=== PATIENT | male | born 1945 | race Caucasian/White ===

== ENCOUNTER 2018-05-28 16:21 | Emergency (ER) | payer MEDICARE ==
[~2018-05-28] VITALS: Ht 182.8 cm; Wt 68.0 kg
--- NOTE | ~2018-05-28 | EKG ---
[place], [place] ELECTROCARDIOGRAM REPORT NAME: ANA VU UNIT #: [id number] ROOM: DOCTOR: CAROL DRAFT REPORT BIRTHDATE: [birth year] [facility] Test Date: 2018-05-28 Test Time: 16:50:35 Pat Name: ANA VU Department: Room: Gender: Medical Records Specialist: SOFY : 1945 Requested By: KOSTA OCHOA Order Number: [id number] Reading MD: Measurements Intervals [place] Rate: 67 P: 57 NE: 169 QRS: 60 QRSD: 85 T: 60 QT: 414 QTc: 437 Interpretive Statements Sinus rhythm No previous ECG available for comparison CM:EKGRPT:ELECTROCARDIOGRAM REPORT [id number] KOSTA LOPEZ DRAFT REPORT KOSTA OCHOA DO
[2018-05-28 16:55] LABS: BILIRUBIN NEGATIVE (NEGATIVE); BLOOD NEGATIVE (NEGATIVE); CLARITY CLEAR (CLEAR); COLOR YELLOW (YELLOW); GLUCOSE NEGATIVE (NEGATIVE); KETONE NEGATIVE (NEGATIVE); LEUKO ESTERASE NEGATIVE (NEGATIVE); NITRITE NEGATIVE (NEGATIVE); SPECIFIC GRAVITY >= 1.030 (1.005-1.030); UROBILINOGEN 0.2 E.U./dl (0.2-1.0)
[2018-05-28 17:02] LABS: BASO % 0.3 % (0.0-1.0); EOS # 0.2 10*3/uL (0.0-0.4); EOS % 1.7 % (1.0-4.0); HEMATOCRIT 35.3 % (42.0-52.0); HEMOGLOBIN 12.4 g/dl (14.0-18.0); LYMPH # 1.1 10*3/uL (1.3-4.4); LYMPH % 11.4 % (27.0-41.0); MEAN CELL VOLUME 92.7 fl (80.0-94.0); MEAN CORPUSCULAR HGB 32.5 pg (27.0-31.0); MEAN CORPUSCULAR HGB CONC 35.1 g/dl (33.0-37.0); MEAN PLATELET VOLUME 9.5 fl (9.6-12.3); MONO # 0.8 10*3/uL (0.1-1.0); MONO % 8.7 % (3.0-9.0); NEUT # 7.2 10*3/uL (2.3-7.9); NEUT % 77.7 % (47.0-73.0); PLATELET COUNT AUTOMATED 193 10*3/uL (130-400); RED BLOOD COUNT 3.81 10*6/uL (4.50-5.90); RED CELL DISTRI WIDTH 15.1 % (0-14.5); WHITE BLOOD COUNT 9.2 10*3/uL (4.8-10.8)
[2018-05-28 17:03] LABS: URINE AMPHETAMINES < 1000 (1000ng/ml); URINE BARBITURATES < 200 (200ng/ml); URINE BENZODIAZEPINES < 200 (200ng/ml); URINE CANNABINOIDS (THC) > 50 (50ng/ml); URINE COCAINE < 300 (300ng/ml); URINE METHADONE < 300 (300ng/ml); URINE OPIATES < 300 (300ng/ml); URINE PHENCYCLIDINE < 25 (25ng/ml)
[2018-05-28 17:06] LABS: BACTERIA 1+; EPITHELIAL CELLS 0-2; RBC 0-2 rbc/hpf (0-2)
[2018-05-28 17:07] LABS: MUCOUS TRACE
[2018-05-28 17:11] LABS: ACT PARTIAL THROMBO TIME 24.8 SECONDS (20.8-31.5)
[2018-05-28 17:19] LABS: ALBUMIN 3.4 gm/dl (3.1-4.5); ALKALINE PHOSPHATASE 106 U/L (45-117); BUN 25 mg/dl (7-24); CHLORIDE 108 mmol/L (98-107); CREATININE 1.24 mg/dL (0.70-1.30); LIPASE 140 U/L (73-393); POTASSIUM 4.4 mmol/L (3.5-5.1); SGOT/AST 21 IU/L (3-35); SGPT/ALT 24 U/L (12-78); SODIUM 141 mmol/L (136-145); TOTAL PROTEIN 7.3 gm/dL (6.4-8.2)
[2018-05-28 17:20] LABS: TROPONIN I < 0.015 ng/ml (<0.045)
[2018-05-28] MEDS ORDERED: LEVOTHYROXINE100 MC1 PO (18:12)
[2018-05-28] MEDS ORDERED: PAROXETINE40 MG PO (18:13)
[2018-05-28] MEDS ORDERED: ATIVAN0.5 MG PO (18:13)
[2018-05-28] MEDS ORDERED: TRAZODONE100 MG PO (18:15)
[2018-05-28] MEDS ORDERED: IBUPROFEN600 MG PO ×2 (18:16→19:00)
[2018-05-28] MEDS ORDERED: LOPRESSOR25 MG PO (18:16)
[2018-05-28] MEDS ORDERED: RISPERDAL1 M1 PO (18:56)
[2018-05-28] MEDS ORDERED: DEPAKOTE SPRIN125 MG PO (18:57)
[2018-05-28] MEDS ORDERED: HALDOL0.5 MG PO (18:58)
[2018-05-28] MEDS ORDERED: ALBUTEROL2.5 MG/0.5 INH (18:59)
[2018-05-28] MEDS ORDERED: ATROPINE SULFATE2 M2 SL (19:00)
[2018-05-28] MEDS ORDERED: BENADRYL ALLERG25 M5 PO (19:01)
[2018-05-28] MEDS ORDERED: SENOKOT-S TABL1 EACH PO (19:01)
== END 2018-05-28 18:41 | disposition admitted as inpatient to this hospital (09) ==
LOC: ED 16:21
PROVIDERS: Emergency Medicine
DX: F63.81 Intermittent explosive disorder (principal); G30.9 Alzheimer's disease, unspecified; F02.80 Dementia in other diseases classified elsewhere, unspecified severity, without behavioral disturbance, psychotic disturbance, mood disturbance, and anxiety; I12.9 Hypertensive chronic kidney disease with stage 1 through stage 4 chronic kidney disease, or unspecified chronic kidney disease; N18.3 Chronic kidney disease, stage 3 (moderate); K21.9 Gastro-esophageal reflux disease without esophagitis; E03.9 Hypothyroidism, unspecified; Z87.891 Personal history of nicotine dependence; Z79.899 Other long term (current) drug therapy

== ENCOUNTER 2018-05-28 17:52 | Inpatient (IN) | payer MEDICARE, OTHER ==
[~2018-05-28] VITALS: Ht 172.7 cm; Wt 70.3 kg
--- NOTE | ~2018-05-28 | PR ---
[place], [place] PROGRESS NOTE NAME: ANA VU UNIT #: [id number] ROOM: 315 DOCTOR: MORIS FOSTER MD BIRTHDATE: [birth year] DOS: 06/05/2018 CHIEF COMPLAINT: "I am okay." SUMMARY OF THE VISIT: The patient was interviewed in the dining area. He was eating his breakfast with assistance from a nursing manager. He was eating quite well. He was no longer making the groaning or the chewing sound; instead, he maintained eye contact and actually verbalized some responses to my questions, but then later drifted off and did not respond. There was no agitation or aggression noted. MENTAL STATUS: He is alert and oriented to self at least, certainly not time or place. Mood does seem to be more euthymic and he is more interactive than he had been previously. The interaction is still minimal, but it is present. There was no agitation or aggression. He does process information slowly. PLAN: I will go ahead and increase Namenda to its maximum dose of 10 mg b.i.d. while simultaneously increasing Exelon patch to its maximum dose of 13.3 mg a day. I will also increase the Nuedexta 20-10 to its maximum dose of q. 12 hours and decrease Depakene syrup to 500 mg in the morning and 1000 mg at night as his valproic acid level is mildly elevated at 109.5. We will engage in individual and estrada milieu activity, returning to the least restrictive environment when psychiatrically stable. MORIS FOSTER MD CM:PNTRANS [id number] MORIS FOSTER MD 06/28/18 9259 interface
--- NOTE | ~2018-05-28 | PR ---
[place], [place] PROGRESS NOTE NAME: ANA VU UNIT #: [id number] ROOM: 315 DOCTOR: MORIS FOSTER MD BIRTHDATE: [birth year] DOS: 06/07/2018 CHIEF COMPLAINT: The patient was sleeping and nonverbal. SUMMARY OF THE VISIT: The patient was attempted to be interviewed as he was resting in a Melissa chair in the dining area. He was very somnolent and I was not able to awaken him; however, both nurses and the resident and medical student that was accompanying me reported that earlier this morning, he was responding to jokes and actually laughing and was spontaneously speaking in sentences. His overall level of physical combativeness likewise has lessened considerably. MENTAL STATUS: My mental status is limited due to his somnolence this morning. PLAN: At this point, I will maintain his current psychotropic regimen. Continue to monitor for risk, benefit. We will plan to discharge to the least restrictive environment when psychiatrically stable. MORIS FOSTER MD CM:PNTRANS [id number] MORIS FOSTER MD 06/07/18 1208 interface
--- NOTE | ~2018-05-28 | DS ---
[place], [place] DISCHARGE SUMMARY [id number] UN[facility] #: [id number] ROOM: 315 DOCTOR: MORIS FOSTER MD BIRTHDATE: [birth year] DOS: 06/08/2018 CHIEF COMPLAINT: The patient was nonverbal. HISTORY OF PRESENT ILLNESS: This is a 72-year-old white male who was sent here from [facility] in [place], [place]. The patient has a history of advanced Alzheimer's and was living at home with his who unfortunately was herself going through active cancer treatment and is unable to care for his needs. Since his admission to [facility], the patient has become increasingly more agitated and has had a decline in function. He has not been ambulating well nor has he been able to attend to his ADLs. He has become incontinent of urine and feces. He does not speak words, but grunts and groans to communicate. He has lost significant weight and is not sleeping well through the night. He has become increasingly violent towards staff when they attempt to do ADLs. He is admitted now to rule out organic factors and to stabilize on medication. SUMMARY OF HOSPITAL COURSE: The patient was admitted to the unit where his Risperdal was discontinued. A prolactin level was checked and it was markedly elevated. Some of his behavior seems seizure like and very repetitive. Depakote in the form of Depakene syrup was started and gradually increased to 500 mg twice daily and 1000 mg at night with good results. Additionally, the patient was started on Remeron 15 mg at bedtime to combat depressive symptoms. Because of his cognitive issues, he was started on a combination of Exelon patch and Namenda. Both of these were titrated rapidly to their maximum dose of Exelon patch 13.3 mg daily and Namenda 10 mg twice daily. He did improve gradually with these medicines and became less violent, but still was not communicating. Finally, Nuedexta was started to treat his pseudobulbar affect and once this was started, he became increasingly more calm and able to speak. He responded to prompting, asked for chocolate milk, laughed at jokes and engaged readily. His behavior dramatically improved likewise with the addition of the Nuedexta. The patient had improved sufficiently to be able to be discharged to [facility]. MENTAL STATUS AT DISCHARGE: He is alert and oriented to self. He is able to speak simple words and simple sentences, nothing elaborate, rather superficial, but pleasant. There was no agitation or aggression noted at the time of discharge. There was no mellisa, hypomania or gross psychosis. No extrapyramidal symptoms, tardive dyskinesia, sedation or somnolence. FINAL DIAGNOSES UPON DISCHARGE: Major depression, recurrent; intermittent explosive disorder and pseudobulbar affect. DISPOSITION: To be admitted to [facility]. Scripts have been printed and will be sent with him. I will be the treating psychiatrist upon his admission there. He is medically and psychiatrically stable. [place], [place] DISCHARGE SUMMARY NAME: ANA VU [place] UNIT #: [id number] ROOM: [facility] DOCTOR: MORIS FOSTER MD BIRTHDATE: [birth year] MORIS FOSTER MD CM:DISCHARG [id number] MORIS FOSTER MD 06/08/18 1538 interface
--- NOTE | ~2018-05-28 | PR ---
[place], [place] PROGRESS NOTE NAME: ANA VU UNIT #: [id number] ROOM: 315 DOCTOR: MORIS FOSTER MD BIRTHDATE: [birth year] DOS: INTERVAL NOTE CHIEF COMPLAINT: "The patient just moaned." SUMMARY OF THE VISIT: The patient was interviewed as he was sitting in a Melissa chair. He did not have a lap benita on and he was relatively comfortable. He continued to moan and even make a chewing noise as I attempted to engage him in conversation. He did have his eyes open and looks at me or appeared to be looking at me through the entire interview, but did not make any verbalizations except for the moaning and the chewing sound. Nurses report similar behavior on and off throughout the day. MENTAL STATUS: It is limited by his inability to carry on a reasonable conversation. PLAN: His valproic acid has been changed to Depakene syrup and the dose increased. The last valproic acid level that we obtain was markedly subtherapeutic. I will recheck a valproic acid level in the a.m. to see if we have become therapeutic yet. I will also add Nuedexta 20-10 one tablet daily to treat this as a pseudobulbar like affect problem. We will monitor and support, also renew his p.r.n. Ativan in case he requires intervention. MORIS FOSTER MD CM:PNTRANS [id number] MORIS FOSTER MD 06/04/18 1734 interface
--- NOTE | ~2018-05-28 | PR ---
[place], [place] PROGRESS NOTE NAME: ANA VU UNIT #: [id number] ROOM: 315 DOCTOR: JOCE GALEANO MD BIRTHDATE: [birth year] DOS: 06/02/2018 SUBJECTIVE: The patient seen and spoke with the staff. Per staff, the patient rants all the time on hospice. Got p.r.n. last night for agitation. The patient was in his room. He was sleeping. It was very difficult to wake him up. I called his name multiple times. He opens his eyes, but then goes back to sleep. He was not in any acute distress. MENTAL STATUS EXAMINATION: Not able to do the full mental status examination as the patient was sleeping. PLAN: 1. Continue current medications and care. 2. Continue redirection. 3. Supportive care. JOCE GALEANO MD CM:PNTRANS [id number] JOCE GALEANO MD 06/03/18 0458 interface
--- NOTE | ~2018-05-28 | PR ---
[place], [place] PROGRESS NOTE NAME: ANA VU UNIT #: [id number] ROOM: 315 DOCTOR: MORIS FOSTER MD BIRTHDATE: [birth year] DOS: 06/06/2018 INTERVAL NOTE CHIEF COMPLAINT: Good morning. SUMMARY OF THE VISIT: The patient was interviewed as he was reclining in a Melissa chair. He actually made good eye contact and was able to respond relatively appropriately to the questions asked of him. He did say yes that he had breakfast. He said no that he did not have pain and he was able to actually string a sentence together. Nurses also report at times spontaneous conversation from him. This is in kendall contrast to how his behavior was upon admission. There was no agitation, no aggression noted. He was not sedated or somnolent. There are no extrapyramidal symptoms or tardive dyskinesia noted. MENTAL STATUS: He is alert and oriented to self. Unclear of place, certainly not time. Mood does seem to be more euthymic. Affect is more appropriate. There is no mellisa, hypomania or gross psychosis. Short term memory does seem to be poor. PLAN: I will maintain the Nuedexta in his current psychotropics. Continue to monitor and support, engage in individual and estrada milieu activity, returning to the least restrictive environment when psychiatrically stable. MORIS FOSTER MD CM:PNTRANS [id number] MORIS FOSTER MD 06/06/18 1557 interface
--- NOTE | ~2018-05-28 | WRIGHTHP ---
[place], [place] PATIENT HISTORY AND PHYSICAL EXAM [id number] UN[facility] #: [id number] ROOM: 316 DOCTOR: MORIS FOSTER MD BIRTHDATE: [birth year] DOS: 05/29/2018 INITIAL PSYCHIATRIC EVALUATION CHIEF COMPLAINT: The patient was nonverbal. HISTORY OF PRESENT ILLNESS: This is a 72-year-old white male who was sent here from [facility] in [place], [place]. The patient apparently has a diagnosis of advanced Alzheimer's and was living at home with his who unfortunately herself is going through active cancer treatment and is unable to meet his needs. Since his admission to [facility], the patient has had a significant decline in his function. He has not been ambulating well. He has not been performing his ADLs. He has become incontinent of urine and feces. The patient does not speak words, but grunts and groans to communicating. He has lost significant weight and has not been always sleeping well. Most recently, he has become increasingly violent towards staff when they are attempting to perform hands on care. At the present time, he is admitted now to rule out further organic treatments, to engage in individual and estrada milieu if possible and then to determine the least restrictive environment to which he could be returned. PAST MEDICAL HISTORY: Remarkable for Alzheimer's dementia, chronic kidney disease stage 3, hypertension, GERD, hypothyroidism, protein-calorie malnutrition, tobacco abuse, and vitamin D deficiency. SOCIAL HISTORY: He is a former smoker and former marijuana abuser. There is no current smoking or marijuana use and no history of alcohol use. ALLERGIES: He has no known allergies. FAMILY HISTORY: Unknown. STRENGTHS: Supportive family. WEAKNESSES: Significant cognitive decline and poor coping skills. MENTAL STATUS: My mental status is horribly limited because of his inability to communicate. On multiple occasions, I called his name and offered him commands to open his eyes. He did not respond verbally. He did not open his eyes, instead he sat in a Melissa chair with his eyes closed, looking forward. DIAGNOSES: Major depression, recurrent, severe, rule out intermittent explosive disorder, also Alzheimer's dementia, severe. PLAN: At the present time, given his what appears to be significant physical decompensation, I will discontinue his Risperdal. I will check a prolactin level this morning to see if it is elevated. I fear that there is an underlying neurologic issue here. I am awaiting hospitalist as intervention to see if they will proceed with a CAT scan or MRI of his brain. My reason for checking prolactin is in case he is having seizures and is postictal. His other lab work [place], [place] PATIENT HISTORY AND PHYSICAL EXAM NAME: ANA VU UNIT #: [id number] ROOM: [facility] DOCTOR: MORIS FOSTER MD BIRTHDATE: [birth year] is fairly insignificant. His TSH is just mildly elevated at 6.390. Valproic acid level is subtherapeutic at 26.4. I will await the hospitalist intervention to determine the next course of action. MORIS FOSTER MD CM:HISPHYS:PATIENT HISTORY AND PHYSICAL EXAMINATION 3 MORIS FOSTER MD 05/29/18 0957 interface
--- NOTE | ~2018-05-28 | PR ---
[place], [place] PROGRESS NOTE NAME: ANA VU UNIT #: [id number] ROOM: 315 DOCTOR: MORIS FOSTER MD BIRTHDATE: [birth year] DOS: 05/31/2018 INTERVAL NOTE CHIEF COMPLAINT: The patient was nonverbal. SUMMARY OF THE VISIT: The patient was attempted to be interviewed as he was reclining in a Melissa chair in the quiet room. On multiple occasions, I called his name and placed my hand gently on his shoulder, at which time, he did not open his eyes. Only after doing this repeatedly did the patient opened his eyes and stare forward. He did not appear to even to be looking at me, nor did he make any verbalizations whatsoever. Nurses report that he does have episodes of conversing nonsensically and growling. They also report that he can be resistive to care and be combative. MENTAL STATUS: It is limited due to his inability or lack of desire to cooperate and interact. PLAN: I will continue to titrate both the Namenda and the Exelon into the therapeutic maximum, bringing Exelon patch from 4.6 to 9.5 mg daily and increasing Namenda from 5 mg a day to 5 mg twice a day. We will continue to attempt to assess and engage in individual and estrada milieu activity, returning then to the least restrictive environment when stable. MORIS FOSTER MD CM:PNTRANS 0948 10 MORIS FOSTER MD 05/31/182008 interface
--- NOTE | ~2018-05-28 | PR ---
[place], [place] PROGRESS NOTE NAME: ANA VU UNIT #: [id number] ROOM: 315 DOCTOR: JOCE GALEANO MD BIRTHDATE: [birth year] DOS: 06/03/2018 SUBJECTIVE: The patient seen and spoke with the staff. Per staff, the patient continues to grunt, but medication compliant. No behavior problems or issues. The patient was sitting in a Melissa chair in front of the nursing station. He opened his eye when I called his name, but then started grunting, which does not make any sense. The patient was not in any acute distress. MENTAL STATUS EXAMINATION: Pleasant and cooperative, not in any acute distress. He was alert. Not oriented to day, date, month or year. PLAN: 1. Continue current medication and care. 2. Continue redirection. 3. Supportive care. JOCE GALEANO MD CM:PNOLEKSANDR 1704 [id number] JOCE GALEANO MD 06/04/18 0553 interface
--- NOTE | ~2018-05-28 | PR ---
[place], [place] PROGRESS NOTE NAME: ANA VU UNIT #: [id number] ROOM: 315 DOCTOR: MORIS FOSTER MD BIRTHDATE: [birth year] DOS: 05/30/2018 CHIEF COMPLAINT: "Hello." SUMMARY OF THE VISIT: The patient was interviewed in the dining area where he was sitting in a Melissa chair. As opposed to yesterday, he had his eyes open. When I called his name, he made eye contact with me. Initially, he attempted to vocalize short sentences, but then eventually stared off into space and did not speak again. Of note, the patient looks somewhat uncomfortable. His throat musculature seems very tense and rather than resting his head against the Melissa chair. He seemed to have it tilted slightly forward. Nurses report, he has episodes of extreme mood lability with vulgarity and has mixed this with periods of pleasant short conversation. MENTAL STATUS: He is at least oriented to self. The mental status is still limited by his inability to converse readily with me. PLAN: Of note, prolactin level is highly elevated at 41.2. Whether this is in relation to the Risperdal that he was prescribed or is a direct result of the underlying seizure disorder is unclear. My understanding, however, was that the patient was not receiving [facility] a sustained basis [facility], so I am more inclined to believe that the prolactin is elevated by a possible seizure disorder. Along these lines, I will go ahead and increase his Depakote Sprinkles further bringing the dose to 500 mg t.i.d. attempting to achieve a blood level between 60 and 80. Given his low p.o. intake of both food and fluid, I will check a CMP and a sed rate in the a.m. Because of significant cognitive impairment, I will add Exelon patch 4.6 mg daily and Namenda 5 mg a day. Beyond this, I will defer to the hospitalist expertise to workup anymore organic factors. We will continue to attempt to engage him in individual and estrada milieu activity, returning to the least restrictive environment when psychiatrically stable. MORIS FOSTER MD CM:PNTRANS 1043 1536 MORIS FOSTER MD 06/28/18 6196 interface
[2018-05-28] MEDS ORDERED: LEVOTHYROXINE100 MC1 PO (18:12)
[2018-05-28] MEDS ORDERED: PAROXETINE40 MG PO (18:13)
[2018-05-28] MEDS ORDERED: ATIVAN0.5 MG PO (18:13)
[2018-05-28] MEDS ORDERED: TRAZODONE100 MG PO (18:15)
[2018-05-28] MEDS ORDERED: IBUPROFEN600 MG PO ×2 (18:16→19:00)
[2018-05-28] MEDS ORDERED: LOPRESSOR25 MG PO (18:16)
[2018-05-28] MEDS ORDERED: RISPERDAL1 M1 PO (18:56)
[2018-05-28] MEDS ORDERED: DEPAKOTE SPRIN125 MG PO (18:57)
[2018-05-28] MEDS ORDERED: HALDOL0.5 MG PO (18:58)
[2018-05-28] MEDS ORDERED: ALBUTEROL2.5 MG/0.5 INH (18:59)
[2018-05-28] MEDS ORDERED: ATROPINE SULFATE2 M2 SL (19:00)
[2018-05-28] MEDS ORDERED: SENOKOT-S TABL1 EACH PO (19:01)
[2018-05-28] MEDS ORDERED: BENADRYL ALLERG25 M5 PO (19:01)
[2018-05-28 19:25] VITALS: BP 135/68
[2018-05-28 20:03] VITALS: BP 135/68
[2018-05-28 22:00] VITALS: BP 135/68
[2018-05-29 05:53] LABS: BASO % 0.5 % (0.0-1.0); EOS # 0.3 10*3/uL (0.0-0.4); EOS % 5.1 % (1.0-4.0); HEMATOCRIT 37.8 % (42.0-52.0); HEMOGLOBIN 12.7 g/dl (14.0-18.0); LYMPH # 1.4 10*3/uL (1.3-4.4); LYMPH % 23.1 % (27.0-41.0); MEAN CELL VOLUME 94.3 fl (80.0-94.0); MEAN CORPUSCULAR HGB 31.7 pg (27.0-31.0); MEAN CORPUSCULAR HGB CONC 33.6 g/dl (33.0-37.0); MEAN PLATELET VOLUME 9.5 fl (9.6-12.3); MONO # 0.6 10*3/uL (0.1-1.0); MONO % 10.1 % (3.0-9.0); NEUT # 3.6 10*3/uL (2.3-7.9); NEUT % 60.9 % (47.0-73.0); PLATELET COUNT AUTOMATED 179 10*3/uL (130-400); RED BLOOD COUNT 4.01 10*6/uL (4.50-5.90); WHITE BLOOD COUNT 5.9 10*3/uL (4.8-10.8)
[2018-05-29 06:05] LABS: BUN 22 mg/dl (7-24); CHLORIDE 106 mmol/L (98-107); CHOLESTEROL 157 mg/dL (<200); CREATININE 1.06 mg/dL (0.70-1.30); HDL CHOLESTEROL 32 mg/dl (40-60); LDL CHOLESTEROL 96 mg/dL (9-159); POTASSIUM 3.9 mmol/L (3.5-5.1); SODIUM 140 mmol/L (136-145); TRIGLYCERIDES 146 mg/dl (<150); VLDL CHOLESTEROL 29 mg/dL (6-40)
[2018-05-29 06:15] LABS: VALPROIC ACID (DEPAKENE) 26.4 ug/ml (50-100)
[2018-05-29 07:33] VITALS: BP 139/82
[2018-05-29 07:55] LABS: VITAMIN D, 25-HYDROXY 45.1 ng/mL (30-100)
[2018-05-29 20:05] VITALS: BP 142/69
[2018-05-30 06:42] VITALS: BP 138/74
[2018-05-30 20:00] VITALS: BP 140/87
[2018-05-31 07:11] LABS: ALBUMIN 3.3 gm/dl (3.1-4.5); BUN 17 mg/dl (7-24); CHLORIDE 107 mmol/L (98-107); SODIUM 144 mmol/L (136-145)
[2018-05-31 07:14] VITALS: BP 156/78
[2018-05-31 07:14] LABS: ALKALINE PHOSPHATASE 105 U/L (45-117); CREATININE 1.05 mg/dL (0.70-1.30); SGOT/AST 19 IU/L (3-35); SGPT/ALT 28 U/L (12-78); TOTAL PROTEIN 7.4 gm/dL (6.4-8.2)
[2018-05-31 18:40] VITALS: BP 155/75
[2018-06-01 08:47] VITALS: BP 138/84
[2018-06-01 19:08] VITALS: BP 140/80
[2018-06-02 08:07] VITALS: BP 142/82
[2018-06-02 19:59] VITALS: BP 121/88
[2018-06-03 07:14] VITALS: BP 153/88
[2018-06-03 19:23] VITALS: BP 144/90
[2018-06-04 08:55] VITALS: BP 122/76
[2018-06-04 20:00] VITALS: BP 138/70
[2018-06-05 08:00] VITALS: BP 130/70
[2018-06-05 20:00] VITALS: BP 126/72
[2018-06-06 08:56] VITALS: BP 158/80
[2018-06-06 09:21] VITALS: BP 158/80; BP 177/73
[2018-06-06 19:57] VITALS: BP 170/70
[2018-06-07 06:30] VITALS: BP 166/73
[2018-06-07 20:22] VITALS: BP 148/82
[2018-06-08 07:54] VITALS: BP 150/76
[2018-06-08] MEDS ORDERED: EXELON13.3 MG/21 T (11:30)
[2018-06-08] MEDS ORDERED: NEUDEXT PO (11:30)
[2018-06-08] MEDS ORDERED: DEPAKENE S250 MG/5 M PO ×2 (11:30)
[2018-06-08] MEDS ORDERED: MIRTAZAPINE15 M2 PO (11:30)
[2018-06-08] MEDS ORDERED: MEMANTINE HCL10 MG PO (11:30)
== END 2018-06-08 14:43 | disposition other institution (70) | DRG 883 ==
LOC: 3N 17:52
PROVIDERS: Internal Medicine; Psychiatry & Neurology Psychiatry
DX: F63.81 Intermittent explosive disorder (principal); F33.2 Major depressive disorder, recurrent severe without psychotic features; F02.81 Dementia in other diseases classified elsewhere, unspecified severity, with behavioral disturbance; E44.1 Mild protein-calorie malnutrition; G30.9 Alzheimer's disease, unspecified; R62.7 Adult failure to thrive; E87.8 Other disorders of electrolyte and fluid balance, not elsewhere classified; R79.89 Other specified abnormal findings of blood chemistry; F12.10 Cannabis abuse, uncomplicated; F41.9 Anxiety disorder, unspecified; F48.2 Pseudobulbar affect; N18.3 Chronic kidney disease, stage 3 (moderate); I12.9 Hypertensive chronic kidney disease with stage 1 through stage 4 chronic kidney disease, or unspecified chronic kidney disease; K21.9 Gastro-esophageal reflux disease without esophagitis; R56.9 Unspecified convulsions; E03.9 Hypothyroidism, unspecified; D64.9 Anemia, unspecified; R82.71 Bacteriuria; R13.10 Dysphagia, unspecified; E55.9 Vitamin D deficiency, unspecified; N39.498 Other specified urinary incontinence; R26.9 Unspecified abnormalities of gait and mobility; K59.09 Other constipation; Z87.891 Personal history of nicotine dependence; Z79.899 Other long term (current) drug therapy; Z68.23 Body mass index [BMI] 23.0-23.9, adult